=== PATIENT | male | born 1945 | race Asian ===

== ENCOUNTER 2019-10-08 08:51 | Emergency (ER) | payer MEDICARE, OTHER ==
[~2019-10-08] VITALS: Ht 167.6 cm; Wt 83.0 kg
--- NOTE | ~2019-10-08 | PROC ---
[address] [address] PROCEDURE REPORT Name: CLYDE QUIROS Room: [facility] David#: [id number] Admission: 10/08/19 Attend Phys: Discharge: 10/08/19 Date of : 45 Report #: [id number] THIS REPORT FOR: //name// For GI report, please see the Provation report in Perceptive 7 content. By: 0644Medical Records Staff CASEY /LIZZ
[2019-10-08] MEDS ORDERED: NORVASC 2.5 MG2.5 M1 PO (08:58)
[2019-10-08] MEDS ORDERED: LOSARTAN-HCTZ1 EAC3 PO (08:58)
[2019-10-08] MEDS ORDERED: FISH OIL 1,0001 EAC9 PO (08:59)
[2019-10-08] MEDS ORDERED: FLOMAX0.4 MG PO (08:59)
[2019-10-08 10:35] LABS: HEMATOCRIT 38.8 % (42.0-52.0); HEMOGLOBIN 12.1 gm/dL (14.0-18.0); MCH 22.5 pg (26.0-34.0); MCHC 31.3 g/dL (28.0-37.0); MPV 7.8 fl. (7.2-11.1); RBC 5.39 mil/uL (4.50-6.00); RDW-CV 14.8 % (10.5-14.5); WBC 5.8 thou/uL (4.0-11.0)
[2019-10-08 10:43] LABS: CREATININE 1.9 mg/dL (0.6-1.3); POTASSIUM 3.6 mmol/L (3.5-5.1)
[2019-10-08 12:07] VITALS: BP 123/69
[2019-10-08 12:25] LABS: ALBUMIN 3.8 g/dL (3.4-5.0); DIRECT BILIRUBIN 0.1 mg/dL (<0.1-0.3); TOTAL BILIRUBIN 0.3 mg/dL (<0.1-1.0); TOTAL PROTEIN 6.9 g/dL (6.4-8.2)
--- NOTE | 2019-10-12 10:38 | EKG ---
[place] [address] ELECTROCARDIOGRAM REPORT Name: CLYDE QUIROS [place] Room: 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 : 1945 Requested By: Caden Lopez Order Number: [id number] MD: Stanislaw Daniels Measurements Intervals [place] Rate: 63 P: 24 ME: 213 QRS: 38 QRSD: 105 T: 30 QT: 413 QTc: 423 Interpretive Statements Sinus rhythm prolonged ME interval Abnormal inferior Q waves Minimal ST elevation, inferior leads No previous ECG available for comparison Electronically Signed On 10-12-2019 10:38:02 [employer] by Stanislaw Daniels [email or web address] <ELECTRONICALLY SIGNED> By: Stanislaw Daniels MD, [facility] 10/12/19 1038 1042 1042 Stanislaw Daniels MD, FACC /EPI
== END 2019-10-08 12:10 | disposition home or self-care (01) ==
LOC: M.ERS 08:51
PROVIDERS: Emergency Medicine Emergency Medical Services; Internal Medicine Gastroenterology
DX: T18.128A Food in esophagus causing other injury, initial encounter (principal); Z98.890 Other specified postprocedural states; Y92.89 Other specified places as the place of occurrence of the external cause